=== PATIENT | male | born 1995 | race African-American/Black ===

== ENCOUNTER 2017-08-18 16:44 | Emergency (ER) | payer OTHER ==
[2017-08-18] MEDS ORDERED: Diazepam 5 MG TAB ONE (18:18)
[2017-08-18] MEDS ORDERED: Ketorolac Tromethamine 30 MG/ML VIAL ONE (18:18)
--- NOTE | 2017-08-18 19:10 | RAD ---
AP VIEW OF THE PELVIS: 08/18/17 INDICATION: History of pelvic pain radiating to the groin. COMPARISON: Prior exam dated 12/27/16. IMPRESSION: The examination is not appreciably changed from the comparison examination. The visualized bowel gas pattern is within normal limits. POS: JOSIE
--- NOTE | 2017-08-18 19:13 | RAD ---
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 FINDINGS: No acute fracture or subluxation is evident. There is slight leftward curvature of the lumbar spine. IMPRESSION: No acute osseous abnormality. POS: JOSIE
== END 2017-08-18 19:11 | disposition home or self-care (01) ==
LOC: ERS 16:44
DX: S39.012A Strain of muscle, fascia and tendon of lower back, initial encounter (principal); J45.909 Unspecified asthma, uncomplicated; F90.9 Attention-deficit hyperactivity disorder, unspecified type; F31.9 Bipolar disorder, unspecified; Z79.899 Other long term (current) drug therapy; W19.XXXA Unspecified fall, initial encounter
CPT/HCPCS: 72100; 72170; 96372; J1885

== ENCOUNTER 2017-08-26 06:19 | Emergency (ER) | payer OTHER ==
[2017-08-26 06:59] LABS: Bilirubin Negative (Negative); Blood, Urine Negative (Negative); Clarity CLOUDY (Clear); Glucose, Urine (Dipstick) Negative (Negative); Leukocyte Small (Negative); Nitrite Negative (Negative); Protein, Urine (Dipstick) Negative (Neg-Trace); Specific Gravity, Urine 1.025 (1.002-1.036); Urobilinogen 0.2 mg/dL (0.2-1.0); pH, Urine 6.5 (5.0-9.0)
[2017-08-26 07:01] LABS: Bacteria/HPF None Seen HPF (None Seen); Pathc Cast-AUWi Flag 0.87 (0-2.49); RBC/HPF 0-3 HPF (0-3); WBC/HPF 0-3 HPF (0-3)
[2017-08-26 07:02] LABS: #Basophils 0.1 thou/uL (0.0-0.2); #Eosinphils 0.1 thou/uL (0.0-0.7); #Monocytes 0.3 thou/uL (0.11-0.59); #Neutrophils 4.2 thou/uL (1.40-6.50); %Basophils 1.2 % (0.0-1.0); %Eosinophils 1.2 % (0.0-10.0); %Lymphocytes 30.2 % (28.0-48.0); %Monocytes 4.9 % (0.0-4.0); %Neutrophils 62.5 % (31.0-61.0); Hemoglobin 11.8 g/dL (14.0-18.0); Mean Corpuscular Hemoglobin 29.1 pg (25.0-35.0); Platelet Count 276 thou/uL (130-400); RBC Distribution Width 12.8 % (11.5-14.5); Red Blood Cell (RBC) Count 4.07 mill/uL (4.00-5.20); White Blood Cell (WBC) Count 6.7 thou/uL (4.8-10.8)
[2017-08-26 07:17] LABS: Anion Gap 14 mmol/L (10-20); BUN (Urea Nitrogen) 15 mg/dL (8.9-20.6); Calc. Creatinine Clearance 0 mL/min (70-130); Calcium 9.8 mg/dL (7.8-10.44); Carbon Dioxide 21 mmol/L (22-29); Chloride 107 mmol/L (98-107); Estimated GFR-MDRD Greater than 90; Glucose 99 mg/dL (70-105); Potassium 3.8 mmol/L (3.5-5.1); Sodium 138 mmol/L (136-145)
[2017-08-26 07:18] LABS: Renal Epithelial 0-3 HPF (0-3); Transitional Epithelial 0-3 HPF (0-3)
[2017-08-26 07:19] LABS: Hyaline Casts/LPF 0-3 HYALINE CAST LPF (0-3 Hyaline)
[2017-08-26] MEDS ORDERED: Phenazopyridine HCl 97.5 MG TABLET ONE (07:19)
== END 2017-08-26 07:50 | disposition home or self-care (01) ==
LOC: ERS 06:19
DX: N32.89 Other specified disorders of bladder (principal); J45.909 Unspecified asthma, uncomplicated; I10 Essential (primary) hypertension; G82.20 Paraplegia, unspecified; F90.9 Attention-deficit hyperactivity disorder, unspecified type; F31.9 Bipolar disorder, unspecified; Z79.899 Other long term (current) drug therapy
CPT/HCPCS: 36415; 80048; 81003; 81015; 85025; 87086

== ENCOUNTER 2017-08-26 09:03 | Emergency (ER) | payer OTHER ==
[2017-08-26] MEDS ORDERED: Oxybutynin 5 MG TAB PO SCH (09:45)
[2017-08-26 10:31] LABS: Amphetamine Not Detected (NotDetected); Barbiturates Screen Not Detected (NotDetected); Benzodiazepine Screen Not Detected (NotDetected); Cocaine Metabolite Screen Not Detected (NotDetected); Medtox Control Line Valid? VALID (VALID); Medtox Reader # READER 4; Methadone Not Detected (NotDetected); Methamphetamine Not Detected (NotDetected); Opiate Screen Not Detected (NotDetected); Oxycodone Screen Not Detected (NotDetected); Phencyclidine (PCP) Not Detected (NotDetected); THC/Cannabinoid Screen Detected (NotDetected); Tricyclic Screen Detected (NotDetected)
== END 2017-08-26 11:50 | disposition home or self-care (01) ==
LOC: ERS 09:03
DX: N32.89 Other specified disorders of bladder (principal); G82.20 Paraplegia, unspecified; J45.909 Unspecified asthma, uncomplicated; F90.9 Attention-deficit hyperactivity disorder, unspecified type; F31.9 Bipolar disorder, unspecified; Z79.51 Long term (current) use of inhaled steroids; Z79.899 Other long term (current) drug therapy
CPT/HCPCS: 36415; 80048; 80306; 81003; 81015; 85025; 87086; 99283